=== PATIENT | male | born 1945 | race Caucasian/White ===

== ENCOUNTER 2024-09-16 11:12 | Outpatient (CLI) | payer MEDICARE, SELFPAY | END 2024-09-16 23:59 | disposition home or self-care (01) | LOC: LAB.DROPOF 09-17 15:06 | PROVIDERS: PCP Urology; Visit Provider Urology | DX: R33.9 Retention of urine, unspecified (principal) | CPT/HCPCS: 87086; 87088; 87186 ==

== ENCOUNTER 2024-09-23 16:12 | Outpatient (CLI) | payer MEDICARE, SELFPAY ==
[2024-09-23 15:43] LABS: Microscopic,Cath URINE MICROSCOPIC (MICROSCOPIC)
[2024-09-23 15:59] LABS: Bilirubin,Cath Negative (Negative); Blood, Urine/Cath 3+ (Negative); Glucose,Urine/Cath (UA) Negative (Negative); Ketones,Urine/Cath TRACE (Negative); Leukocyte Esterase,Cath TRACE (Negative); Nitrate,Cath POSITIVE (Negative); Protein,Urine/Cath 2+ (Negative); Specific Gravity, Urine/Cath 1.025 (1.005-1.030); Urobilinogen,Cath 0.2 EU/dl (0.2)
[2024-09-23 16:14] LABS: Appearance,Urine/Cath Cloudy (Clear); Color,Urine/Cath Amber (Yellow)
[2024-09-23 16:25] LABS: Bacteria,Urine/Cath 3+ /lpf; CA Oxalate Crystals,Ur/Cath Trace /lpf
== END 2024-09-23 23:59 | disposition home or self-care (01) ==
LOC: LAB.DROPOF 16:12
PROVIDERS: PCP Urology; Visit Provider Urology
DX: R33.9 Retention of urine, unspecified (principal); N40.1 Benign prostatic hyperplasia with lower urinary tract symptoms
CPT/HCPCS: 81001; 87086; 87088; 87186